=== PATIENT | male | born 1970 | race Caucasian/White ===

== ENCOUNTER 2017-10-29 11:27 | Day surgery (SDC) | payer BC ==
[2017-10-28 11:58] LABS: HEMOGLOBIN 15.5 g/dL (13.5-17.5); MCH 34.1 pg (26.0-34.0); MCHC 34.4 g/dL (31.0-37.0); MCV 98.9 fL (80.0-100.0); MEAN PLATELET VOLUME 9.3 fL (7.4-10.4); RBC 4.55 10x6/uL (4.20-6.10); RDW 13.7 % (11.5-14.5); WBC 10.2 10x3/uL (4.8-10.8)
[~2017-10-29] VITALS: Ht 177.8 cm; Wt 70.5 kg
--- NOTE | ~2017-10-29 | OP ---
PATIENT NAME: ANNA HOOKER MEDICAL RECORD: [id number] :72 [facility] DATE: SURGEON: JACKELINE SUAREZ MD DATE OF OPERATION: 10/29/2017 PREOPERATIVE DIAGNOSES: Large osteophyte formation and disk herniation at C3-C4 with cervical nerve root compression at C3-C4, right. PROCEDURE: Anterior cervical diskectomy and fusion at C3-C4 with removal of osteophytes, under microscopic illumination, PEEK interbody cage, ViaCell bone stem cell allograft; separate anterior cervical plate and screws, Zavation packing machine inspector, 18 mm screws were used and an 18 mm Uniplate was used. DESCRIPTION OF TECHNIQUE: After induction of general endotracheal anesthesia, the patient was positioned supine on the operating table. Neck was prepped and draped in usual sterile fashion. Fluoroscopic x-ray and freer localized the C3-C4 interspace. A transverse skin incision was carried out from the midline to the sternocleidomastoid muscle. The platysma was divided with Bovie cautery. Using blunt and sharp dissection with Metzenbaum scissors, I proceeded in the avascular plane medial to the carotid sheath. Following this, the C3-C4 interspace was identified with fluoroscopic x-ray and a spinal needle. Following this, the longus colli muscles were elevated with Bovie cautery. A self-retaining retractor was placed deep in the longus colli muscles. [place] distracting pins were placed at the bodies of C3 and C4. Disk material was removed with pituitary rongeurs and curettes. The endplates were prepared with sharp curettes. Posteriorly, microscope and Midas-Luc drill were used to remove an osteophyte in the right C4 neural foramen originating from the uncovertebral joint on that side. A foraminotomy was carried out on both sides with Cloward rongeurs. The posterior longitudinal ligament was removed with Cloward rongeurs. Following this, the dura was decompressed well. A PEEK interbody cage was placed in the disk space under distraction. There was 8 mm cage. Prior to this, it was filled with ViaCell bone stem cell allograft. Next, a separate Zavation anterior cervical plate and screws was used to span the C3-C4 interspace. Self-drilling screws were driven through the holes in the plate and the locking cams were tightened down over the screw heads. Good position of the hardware was confirmed with fluoroscopic x-ray. The locking cams were tightened down over screw heads. Meticulous hemostasis was maintained throughout the wound. Wound was irrigated with copious amounts of Ancef irrigant solution. The platysma and subdermal layer closed with interrupted 3-0 Vicryl suture. The skin was reapproximated with Steri-Strips and benzoin. A sterile dressing was applied to the wound. The patient was awakened in good condition and taken to recovery. All counts were reported as correct. Estimated blood loss was minimal. TRANSINT:[id number] Voice Confirmation ID: [id number] DOCUMENT ID: [id number] JACKELINE SUAREZ MD at 1510 CC: [id number] DICTATION DATE: 11/18/172134 FARM MACHINE OPERATOR: 11/19/17 0528 [facility] 10/30/17 [id number] [place] [address]
[~2017-10-29 11:27] MED LIST: COZAAR100 MG PO; MOBIC7.5 MG PO; NEURONTIN 300300 MG PO; NORVASC10 MG PO; OMEPRAZOLE20 M1 PO; ULTRAM50 MG PO
[2017-10-29] MEDS ORDERED: DOXEPIN HCL10 MG PO (11:43)
[2017-10-29 12:03] VITALS: BP 161/102; BMI 22.2
[2017-10-29 22:29] VITALS: BP 152/99
[2017-10-30 00:25] VITALS: BP 161/76
[2017-10-30 04:21] VITALS: BP 164/74
[2017-10-30 07:16] VITALS: Ht 177.8 cm; Wt 70.5 kg
[2017-10-30 08:37] VITALS: BP 160/107
[2017-10-30] MEDS ORDERED: ULTRAM50 MG PO ×2 (10:12→10:14)
== END 2017-10-30 11:00 | disposition home or self-care (01) ==
LOC: D.MS 11:27 → D.OPS 11:27 → D.MS 22:00 → D.OPS 10-30 11:00 → D.PAN 11-04 10:00 → D.OPS 11-04 10:30 → D.PAN 11-05 07:30 → D.OPS 11-05 07:30
PROVIDERS: Anesthesiology
DX: M50.21 Other cervical disc displacement, high cervical region (principal); M54.12 Radiculopathy, cervical region; F17.200 Nicotine dependence, unspecified, uncomplicated; I10 Essential (primary) hypertension; K21.9 Gastro-esophageal reflux disease without esophagitis; Z01.812 Encounter for preprocedural laboratory examination